=== PATIENT | female | born 1975 | race African-American/Black ===

== ENCOUNTER 2016-06-02 14:32 | Emergency (ER) | payer MEDICAID ==
[2016-06-02] MEDS ORDERED: NORMAL SALINE 500 ML IV ONE (15:22)
--- NOTE | 2016-06-02 15:39 | ER Document Report ---
ED Medical Screen (RME) - General Chief Complaint: OB Problem (<20wks) Stated Complaint: ABDOMINAL PAIN Notes: I briefly seen and evaluated this patient in my role as physician in triage. I have initiated orders based on this initial evaluation. Please see my colleague' s documentation for complete history, physical, management, diagnosis, and ultimate disposition. My brief evaluation: Patient is EGA 16 weeks via ultrasound. Patient reports onset of right lower quadrant abdominal pain starting yesterday. She has nausea and vomiting. She denies any vaginal bleeding. She has increased urine frequency but no dysuria. No history of renal colic. The patient denies any fevers. On exam, patient alert and oriented in mild distress secondary to discomfort. Chest clear and equal bilaterally. Heart rate and rhythm are normal no murmurs. Abdomen is soft but tender in the right lower quadrant and suprapubically. Bowel sounds are present. Medical decision making: Initiating abdominal pain workup in second trimester female. The patient tells me she thinks she is a B- blood type. Will check type and screen as patient indicates that several weeks ago she had a mild amount of spotting. TRAVEL OUTSIDE OF THE [place] IN LAST 30 DAYS: No - Related Data Allergies/Adverse Reactions: No Known Allergies Allergy (Verified 06/02/16 15:15) Home Medications: Current Home Medications Multivits-Minerals/FA/Lycopene [One Daily Tablet] 1 each PO DAILY 06/02/16 [ History] Past Medical History Pulmonary Medical History: Reports: Hx Asthma, Hx Pneumonia Renal/ Medical History: Denies: Hx Peritoneal Dialysis - Immunizations Hx Diphtheria, Pertussis, Tetanus Vaccination: Yes Physical Exam - Vital signs Vitals: Temp Pulse Resp BP Pulse Ox 98.2 F 73 18 114/64 100 06/02/16 14:38 06/02/16 14:38 06/02/16 14:38 06/02/16 14:38 06/02/16 14:38 Course - Vital Signs Vital signs: Temp Pulse Resp BP Pulse Ox 98.2 F 73 18 114/64 100 06/02/16 14:38 06/02/16 14:38 06/02/16 14:38 06/02/16 14:38 06/02/16 14:38
[2016-06-02 15:57] LABS: ABSOLUTE EOSINOPHILS # (AUTO) 0.3 10^3/uL (0.0-0.6); ABSOLUTE LYMPHOCYTES (AUTO) 1.8 10^3/uL (0.5-4.7); ABSOLUTE MONOCYTES (AUTO) 0.5 10^3/uL (0.1-1.4); ABSOLUTE NEUT (AUTO) 4.9 10^3/uL (1.7-8.2); BASOPHILS % (AUTO) 0.6 % (0-2); EOSINOPHILS % (AUTO) 4.5 % (0-6); HEMOGLOBIN 13.3 g/dL (12.0-15.5); HGB HCT DIFFERENCE 0.9; LYMPHOCYTES % (AUTO) 24.3 % (13-45); MEAN CORPUSCULAR HEMOGLOBIN 29.6 pg (27.0-33.4); MEAN CORPUSCULAR VOLUME 87 fl (80-97); MONOCYTES % (AUTO) 6.2 % (3-13); RED BLOOD COUNT 4.48 10^6/uL (3.72-5.28); RED CELL DISTRIBUTION WIDTH 13.7 % (11.5-14.0); SEGMENTED NEUTROPHILS % (AUTO) 64.4 % (42-78); WHITE BLOOD COUNT 7.6 10^3/uL (4.0-10.5)
[2016-06-02 16:15] LABS: ALANINE AMINOTRANSFERASE 23 U/L (9-52); ALBUMIN 3.8 g/dL (3.5-5.0); ALKALINE PHOSPHATASE 45 U/L (38-126); ANION GAP 10 (5-19); ASPARTATE AMINO TRANSFERASE 17 U/L (14-36); BILIRUBIN,DIRECT 0.2 mg/dL (0.0-0.4); BILIRUBIN,TOTAL 0.6 mg/dL (0.2-1.3); BLOOD UREA NITROGEN 11 mg/dL (7-20); CARBON DIOXIDE 25 mmol/L (22-30); CHLORIDE 104 mmol/L (98-107); CREATININE RESULT 0.65 mg/dL (0.52-1.25); GLUCOSE 84 mg/dL (75-110); LIPASE 123.1 U/L (23-300); POTASSIUM 4.5 mmol/L (3.6-5.0); SODIUM 139.3 mmol/L (137-145); TOTAL PROTEIN 6.8 g/dL (6.3-8.2)
[2016-06-02 16:21] LABS: APPEARANCE,URINE SLIGHTLY-CLOUDY; BILIRUBIN,URINE NEGATIVE (NEGATIVE); GLUCOSE, URINE NEGATIVE (NEGATIVE); KETONES,URINE NEGATIVE (NEGATIVE); LEUKOCYTE ESTERASE,URINE NEGATIVE (NEGATIVE); NITRITE,URINE NEGATIVE (NEGATIVE); PROTEIN,URINE NEGATIVE (NEGATIVE); URINE SPECIFIC GRAVITY 1.014; UROBILINOGEN,URINE NEGATIVE mg/dL (<2.0)
[2016-06-02] MEDS ORDERED: ACETAMINOPHEN 325 MG TABLET PO ONE (17:32)
--- NOTE | 2016-06-02 17:43 | ER Document Report ---
ED General - General Chief Complaint: OB Problem (<20wks) Stated Complaint: ABDOMINAL PAIN Mode of Arrival: Ambulatory Information source: Patient Notes: 40-year-old female 4 para 316 weeks presents with complaints of suprapubic bilateral lower quadrant abdominal pain. Patient denies any significant right lower quadrant states it is mostly in the suprapubic region. Denies any fevers or chills admits to mild nausea. Patient notes she has had nausea and uses marijuana for nausea control. TRAVEL OUTSIDE OF THE [place] IN LAST 30 DAYS: No - HPI Onset: This morning Onset/Duration: Sudden Quality of pain: Achy Severity: Mild Pain Level: 1 Associated symptoms: Nausea, Vomiting Exacerbated by: Denies Relieved by: Denies Similar symptoms previously: Yes Recently seen / treated by doctor: Yes [facility] - Related Data Allergies/Adverse Reactions: No Known Allergies Allergy (Verified 06/02/16 15:15) Home Medications: Current Home Medications Multivits-Minerals/FA/Lycopene [One Daily Tablet] 1 each PO DAILY 06/02/16 [ History] Past Medical History - Social History Smoking Status: Current Every Day Smoker Cigarette use (# per day): Yes Chew tobacco use (# tins/day): No Smoking Education Provided: Yes - Patient counselled regarding cessation for 4 minutes Family History: Reviewed & Not Pertinent Patient has suicidal ideation: No Patient has homicidal ideation: No Pulmonary Medical History: Reports: Hx Asthma, Hx Pneumonia Renal/ Medical History: Denies: Hx Peritoneal Dialysis - Immunizations Hx Diphtheria, Pertussis, Tetanus Vaccination: Yes Review of Systems - Review of Systems Notes: REVIEW OF SYSTEMS: CONSTITUTIONAL : Denies fever, chills, or sweats. Denies recent illness. EENT: Denies eye, ear, throat, or mouth pain or symptoms. Denies nasal or sinus congestion or discharge. Denies throat, tongue, or mouth swelling or difficulty swallowing. CARDIOVASCULAR: Denies chest pain. Denies palpitations or racing or irregular heart beat. Denies ankle edema. RESPIRATORY: Denies cough, cold, or chest congestion. Denies shortness of breath, difficulty breathing, or wheezing. GASTROINTESTINAL: Suprapubic pain GENITOURINARY: Denies difficulty urinating, painful urination, burning, frequency, blood in urine, or discharge. MUSCULOSKELETAL: Denies back or neck pain or stiffness. Denies joint pain or swelling. SKIN: Denies rash, lesions or sores. HEMATOLOGIC : Denies easy bruising or bleeding. LYMPHATIC: Denies swollen, enlarged glands. NEUROLOGICAL: Denies confusion or altered mental status. Denies passing out or loss of consciousness. Denies dizziness or lightheadedness. Denies headache. Denies weakness or paralysis or loss of use of either side. Denies problems with gait or speech. Denies sensory loss, numbness, or tingling. Denies seizures. PSYCHIATRIC: Denies anxiety or stress. Denies depression, suicidal ideation, or homicidal ideation. ALL OTHER SYSTEMS REVIEWED AND NEGATIVE. Dictation was performed using [employer] voice recognition software PHYSICAL EXAMINATION: GENERAL: Well-appearing, well-nourished and in no acute distress. HEAD: Atraumatic, normocephalic. EYES: Pupils equal round and reactive to light, extraocular movements intact, conjunctiva are normal. ENT: Nares patent, oropharynx clear without exudates. Moist mucous membranes. NECK: Normal range of motion, supple without lymphadenopathy LUNGS: Breath sounds clear to auscultation bilaterally and equal. No wheezes rales or rhonchi. HEART: Regular rate and rhythm without murmurs ABDOMEN: Soft, gravid abdomen tenderness suprapubic region no tenderness in the right lower quadrant Female : deferred Musculoskeletal: Normal range of motion, no pitting or edema. No cyanosis. NEUROLOGICAL: Cranial nerves grossly intact. Normal speech, normal gait. Normal sensory, motor exams PSYCH: Normal mood, normal affect. SKIN: Warm, Dry, normal turgor, no rashes or lesions noted. Physical Exam - Vital signs Vitals: Temp Pulse Resp BP Pulse Ox 98.2 F 73 18 114/64 100 06/02/16 14:38 06/02/16 14:38 06/02/16 14:38 06/02/16 14:38 06/02/16 14:38 Course - Re-evaluation Re-evalutation: 06/02/16 17:43 Patient does not appear to have any life-threatening issues urinalysis is pending at this time does not have any rigidity 06/02/16 19:38 Ultrasound lab work note no acute abnormality, given that patient has no white count is afebrile I do not believe any life-threatening issues are noted. Patient is stable for discharge with close follow-up After performing a Medical Screening Examination, I estimate there is LOW risk for ACUTE APPENDICITIS, BOWEL OBSTRUCTION, ACUTE CHOLECYSTITIS, PERFORATED DIVERTICULITIS, INCARCERATED HERNIA, PANCREATITIS, PELVIC INFLAMMATORY DISEASE, PERFORATED ULCER, ECTOPIC , or TUBO-OVARIAN ABSCESS, thus I consider the discharge disposition reasonable. Also, there is no evidence or peritonitis , sepsis, or toxicity. I have reevaluated this patient multiple times and no significant life threatening changes are noted. The patient and I have discussed the diagnosis and risks, and we agree with discharging home with close follow-up with the understanding that symptoms and presentations can change. We also discussed returning to the Emergency Department immediately if new or worsening symptoms occur. We have discussed the symptoms which are most concerning (e.g., bloody stool, fever, changing or worsening pain, vomiting) that necessitate immediate return. - Vital Signs Vital signs: Temp Pulse Resp BP Pulse Ox 98.2 F 73 18 114/64 100 06/02/16 14:38 06/02/16 14:38 06/02/16 14:38 06/02/16 14:38 06/02/16 14:38 - Laboratory Result Diagrams: 06/02/16 15:32 06/02/16 15:32 Laboratory results interpreted by me: 06/02/16 06/02/16 15:32 15:32 Beta HCG, Quant 7694.00 H Urine Ascorbic Acid 40 H - Diagnostic Test Radiology reviewed: Image reviewed, Reports reviewed Discharge - Discharge Clinical Impression: Encounter for smoking cessation counseling, Abdominal pain affecting Condition: Stable Disposition: HOME, SELF-CARE Instructions: Abdominal Pain ([facility]) Additional Instructions: Follow up with your physician tomorrow for further care or return to the ED IMMEDIATELY if symptoms worsen or new concerns occur. If you cannot afford to follow up with your primary care physician a list of low cost clinics have been provided at the end of your discharge papers as well. Prescriptions: Promethazine HCl [Phenergan 25 mg Tablet] 1 - 2 tab PO Q6H PRN #15 tablet PRN Reason:
[2016-06-02 20:20] VITALS: BP 111/63
== END 2016-06-02 20:10 | disposition home or self-care (01) ==
LOC: ER 14:32
DX: O26.92 Pregnancy related conditions, unspecified, second trimester (principal); R10.30 Lower abdominal pain, unspecified; O21.9 Vomiting of pregnancy, unspecified; O99.332 Smoking (tobacco) complicating pregnancy, second trimester; F17.210 Nicotine dependence, cigarettes, uncomplicated; Z3A.16 16 weeks gestation of pregnancy
CPT/HCPCS: 99406; 99284; 96360; 36415; 84702; 83690; 85025; 86430; 80053; 81001; 76775; J3490; J7040

== ENCOUNTER 2018-02-06 23:35 | Emergency (ER) | payer MEDICAID ==
[2018-02-07] MEDS ORDERED: IPRATROPIUM/ALBUTEROL 0.5-2.5 MG/3 ML AMPUL NEB ONE (00:33)
[2018-02-07] MEDS ORDERED: DEXAMETHASONE SOD PHOS INJ 10 MG/1 ML VIAL IM ONE (00:33)
[2018-02-07 01:09] LABS: BACTERIA (WET MOUNT) 4+ BACTERIA SEEN; RBCS (WET MOUNT) 2+ RBCS SEEN; T.VAGINALIS (WET MOUNT) NO TRICHOMONAS SEEN; WBCS (WET MOUNT) 2+ WBCS SEEN; YEAST (WET MOUNT) NO YEAST SEEN
--- NOTE | 2018-02-07 01:35 | RADIOLOGY REPORT (SQ) ---
EXAM DESCRIPTION: XR CHEST 2 VIEWS COMPLETED DATE/TME: 02/07/2018 00:32 CLINICAL HISTORY: 42 years Female, cough COMPARISON: None. NUMBER OF VIEWS/TECHNIQUE: 2, Frontal, Lateral FINDINGS: Increased lung volume, clear parenchyma, normal cardiac silhouette, and intact bony thorax. IMPRESSION: No acute cardiopulmonary findings.
[2018-02-07] MEDS ORDERED: PENICILLIN G BENZATHINE 1.2 MILLION UNIT/2 ML DISP.SYRIN IM ONE (01:37)
[2018-02-07 01:43] VITALS: BP 136/84
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
== END 2018-02-07 02:06 | disposition home or self-care (01) ==
LOC: ER 23:35
DX: J02.0 Streptococcal pharyngitis (principal); J45.50 Severe persistent asthma, uncomplicated; R05 Cough; R49.0 Dysphonia; R09.81 Nasal congestion; J34.89 Other specified disorders of nose and nasal sinuses; R13.10 Dysphagia, unspecified; R09.82 Postnasal drip; H61.23 Impacted cerumen, bilateral; F17.210 Nicotine dependence, cigarettes, uncomplicated; Z20.2 Contact with and (suspected) exposure to infections with a predominantly sexual mode of transmission; Z87.01 Personal history of pneumonia (recurrent)
CPT/HCPCS: 99283; 96372; 87210; 87880; 71046; J0561; J1100; J7620

== ENCOUNTER 2018-11-10 18:35 | Emergency (ER) | payer MEDICAID ==
[2018-11-10] MEDS ORDERED: PREDNISONE 20 MG TABLET PO ONE (18:43)
[2018-11-10] MEDS ORDERED: IPRATROPIUM/ALBUTEROL 0.5-2.5 MG/3 ML AMPUL NEB ONE ×3 (18:43→19:52)
--- NOTE | 2018-11-10 18:44 | ER Document Report ---
ED Medical Screen (RME) - General Chief Complaint: Shortness Of Breath Stated Complaint: DIFFICULTY BREATHING Time Seen by Provider: 11/10/18 18:41 Mode of Arrival: Ambulatory Information source: Patient Notes: This 43-year-old female presents to the emergency department with history of asthma complaint difficulty breathing since Sunday. Reports cough since Sunday with sputum production. Denies fever and vomiting. Reports she used her inhaler several times without relief of symptoms. Patient is a respiratory rate tachypneic positive wheeze I have greeted and performed a rapid initial assessment of this patient. A comprehensive ED assessment and evaluation of the patient, analysis of test results and completion of the medical decision making process will be conducted by additional ED providers. Dictation of this chart was performed using voice recognition software; therefore, there may be some unintended grammatical errors. TRAVEL OUTSIDE OF THE [place] IN LAST 30 DAYS: No - Related Data Allergies/Adverse Reactions: No Known Allergies Allergy (Verified 06/02/16 15:15) Past Medical History Pulmonary Medical History: Reports: Hx Asthma, Hx Pneumonia Renal/ Medical History: Denies: Hx Peritoneal Dialysis - Immunizations Hx Diphtheria, Pertussis, Tetanus Vaccination: Yes Physical Exam - Vital signs Vitals: Temp Pulse Resp BP Pulse Ox 98.7 F 81 44 H 156/100 H 97 11/10/18 18:41 11/10/18 18:41 11/10/18 18:41 11/10/18 18:41 11/10/18 18:41 Course - Vital Signs Vital signs: Temp Pulse Resp BP Pulse Ox 98.7 F 81 44 H 156/100 H 97 11/10/18 18:41 11/10/18 18:41 11/10/18 18:41 11/10/18 18:41 11/10/18 18:41
--- NOTE | 2018-11-10 19:33 | RADIOLOGY REPORT (SQ) ---
EXAM DESCRIPTION: CHEST 2 VIEWS COMPLETED DATE/TIME: 11/10/2018 7:17 pm REASON FOR STUDY: cough COMPARISON: 02/07/2018 NUMBER OF VIEWS: Two view. TECHNIQUE: Frontal and lateral radiographic views of the chest acquired. LIMITATIONS: None. FINDINGS: LUNGS AND PLEURA: Peribronchial cuffing and interstitial changes. No consolidation, effus ion, or pneumothorax. MEDIASTINUM AND HILAR STRUCTURES: No masses. No contour abnormalities. HEART AND VASCULAR STRUCTURES: Heart normal in size and contour. No evidence for failure. BONES: No acute findings. HARDWARE: None in the chest. OTHER: No other significant finding. IMPRESSION: REACTIVE AIRWAY DISEASE VERSUS VIRAL SYNDROME. NO CONSOLIDATION. TECHNICAL DOCUMENTATION: JOB ID: [id number] [id number] 2010 [employer]- All Rights Reserved Reading location - IP/workstation name: [email or web address]
--- NOTE | 2018-11-10 19:57 | ER Document Report ---
ED General - General Chief Complaint: Shortness Of Breath Stated Complaint: DIFFICULTY BREATHING Time Seen by Provider: 11/10/18 18:41 Mode of Arrival: Ambulatory Notes: 43-year-old female presents emergency department complaining of rhinorrhea starting on , shortness of breath starting on Sunday and a productive cough starting since then. States is been progressively worsening. Cough is somewhat improved by using her mother's Combivent inhaler but she is out of her own albuterol inhaler. Admits cough that is productive of yellow sputum, denies fever, denies chest pain. TRAVEL OUTSIDE OF THE [place] IN LAST 30 DAYS: No - Related Data Allergies/Adverse Reactions: No Known Allergies Allergy (Verified 06/02/16 15:15) Past Medical History - General Information source: Patient - Social History Smoking Status: Current Every Day Smoker - Started at 41 years old. Frequency of alcohol use: Occasional Drug Abuse: None Family History: Reviewed & Not Pertinent Patient has suicidal ideation: No Patient has homicidal ideation: No Pulmonary Medical History: Reports: Hx Asthma, Hx Pneumonia Renal/ Medical History: Denies: Hx Peritoneal Dialysis - Immunizations Hx Diphtheria, Pertussis, Tetanus Vaccination: Yes Review of Systems - Review of Systems Constitutional: No symptoms reported EENT: See HPI, Nose congestion, Nose discharge Cardiovascular: No symptoms reported Respiratory: See HPI -: Yes All other systems reviewed and negative Physical Exam - Vital signs Vitals: Temp Pulse Resp BP Pulse Ox 98.7 F 81 44 H 156/100 H 97 11/10/18 18:41 11/10/18 18:41 11/10/18 18:41 11/10/18 18:41 11/10/18 18:41 Interpretation: Hypertensive, Tachypneic - Notes Notes: GENERAL: Alert, interacts well. Appears mildly short of breath. . HEAD: Normocephalic, atraumatic EYES: Pupils equal, round and reactive to light, extraocular movements intact. ENT: Oral mucosa moist, tongue midline. Clear rhinorrhea, clear fluid behind the tympanic membranes, cobblestoning in the posterior oropharynx. NECK: Full range of motion, supple, trachea midline. LUNGS: Diffuse expiratory wheezing, some coarse rhonchi, tachypneic, mild respiratory distress. HEART: Regular rate and rhythm, no murmurs, gallops, rubs. ABDOMEN: Soft, nontender, nondistended, bowel sounds present in all 4 quadrants. EXTREMITIES: Moves all 4 extremities spontaneously, no edema, radial and dorsalis pedis pulses 2/4 bilaterally. No cyanosis. NEUROLOGICAL: Alert and oriented x3, normal speech. PSYCH: Normal mood, normal affect. SKIN: Warm, Dry, normal turgor, no rashes or lesions noted. Course - Re-evaluation Re-evalutation: 11/10/18 21:33 Chest x-ray shows reactive airway disease versus viral syndrome. Patient is not hypoxic, wheezing has improved with breathing treatments. Patient will be prescribed albuterol inhaler, steroids and Tessalon Perles and discharged home. - Vital Signs Vital signs: Temp Pulse Resp BP Pulse Ox 98.7 F 81 44 H 156/100 H 100 11/10/18 18:41 11/10/18 18:41 11/10/18 18:41 11/10/18 18:41 11/10/18 20:00 Discharge - Discharge Clinical Impression: Viral upper respiratory tract infection with cough Acute asthma exacerbation Qualifiers: Asthma severity: moderate Asthma persistence: persistent Qualified Code(s): J45.41 - Moderate persistent asthma with (acute) exacerbation Condition: Stable Disposition: HOME, SELF-CARE Additional Instructions: Please use nasal saline rinses such as a NetiPot or NeilMed Sinus Rinses. Please use ibuprofen (Motrin or Advil) 600-800 mg every 8 hours as needed for pain or fever. You may also use acetaminophen (Tylenol) 1000 mg every 4-6 hours as needed for pain or fever. Please be aware that many medications contain acetaminophen, do not exceed a total of 1000 mg of acetaminophen every 6 hours. Please take the steroids as directed until they are gone. Please use your albuterol inhaler 2 puffs every 4 hours for the next 24 hours then you may use it 2 puffs every 4 hours as needed after that. Please return if you need it every 2 hours or more. Prescriptions: Prednisone [Deltasone 20 mg Tablet] 2 tab PO DAILY 5 Days tablet
[2018-11-10] MEDS ORDERED: BENZONATATE 100 MG CAPSULE PO PRN (21:33)
[2018-11-10] MEDS ORDERED: ALBUTEROL SULFATE HFA (90 MCG/PUFF) 8 GM MDI (1 MDI/ER DISP) IH ONE (21:33)
[2018-11-10 21:53] VITALS: BP 142/82
== END 2018-11-10 21:51 | disposition home or self-care (01) ==
LOC: ER 18:35
DX: J06.9 Acute upper respiratory infection, unspecified (principal); B97.89 Other viral agents as the cause of diseases classified elsewhere; J45.41 Moderate persistent asthma with (acute) exacerbation; J34.89 Other specified disorders of nose and nasal sinuses; R05 Cough; R06.02 Shortness of breath; R06.03 Acute respiratory distress; R09.81 Nasal congestion; F17.200 Nicotine dependence, unspecified, uncomplicated; Z87.01 Personal history of pneumonia (recurrent)
CPT/HCPCS: 94640 ×2; 99284; 71046; J3490 ×2; J7512; J7620

== ENCOUNTER 2019-10-20 23:48 | Emergency (ER) | payer MEDICAID ==
--- NOTE | 2019-10-21 02:16 | RADIOLOGY REPORT (SQ) ---
EXAM DESCRIPTION: XR ANKLE 2 VIEWS BILATERAL COMPLETED DATE/TME: 10/21/2019 00:00 CLINICAL HISTORY: 44 years, Female, bone pain COMPARISON: None. NUMBER OF VIEWS: 6 TECHNIQUE: 3 views of each ankle LIMITATIONS: None. FINDINGS: Left ankle: Lateral soft tissues swelling. Nondisplaced comminuted fracture of the lateral malleolus. No dislocation. Right ankle: Lateral soft tissue swelling. Negative for acute fracture or dislocation. IMPRESSION: Nondisplaced fracture of the lateral malleolus of the left ankle. Soft tissue swelling bilaterally. copyright 2010 [email or web address]- All Rights Reserved
[2019-10-21] MEDS ORDERED: OXYCODONE HCL IR 5 MG TABLET PO ONE (06:14)
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
[2019-10-21 06:56] VITALS: BP 130/82
== END 2019-10-21 07:08 | disposition home or self-care (01) ==
LOC: ER 23:48
DX: S82.65XA Nondisplaced fracture of lateral malleolus of left fibula, initial encounter for closed fracture (principal); Y08.89XA Assault by other specified means, initial encounter; F17.200 Nicotine dependence, unspecified, uncomplicated; J45.909 Unspecified asthma, uncomplicated; Z79.899 Other long term (current) drug therapy
CPT/HCPCS: 29515; 99283; 73600; J3490; 96374; 96375; 96376; 99285